=== PATIENT | female | born 1970 | race Caucasian/White ===

== ENCOUNTER 2017-08-24 21:09 | Emergency (ER) | payer OTHER ==
[2017-08-24 21:22] VITALS: BP 125/69; PULSE 98; RESP 16; TEMP 97; O2SAT 99
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
--- NOTE | 2017-08-25 11:09 | RAD ---
PROCEDURE: Cervical Spine Radiographs. HISTORY: Pain. COMPARISON: None. FINDINGS: BONES: Reversal of the anatomic lordosis with kyphosis DISC SPACES: Degenerative changes primarily affecting C5-6 and to lesser extent C6-7 consisting of disc space narrowing and non marginal anterior osteophyte formation. SOFT TISSUES: Normal. No prevertebral soft tissue swelling. OTHER FINDINGS: None. IMPRESSION: No acute findings related to/accounting for the clinical presentation. Additional benign and/or incidental findings described above. Concordant results with the preliminary interpretation rendered by the emergency department physician procedure.
== END 2017-08-24 23:02 | disposition home or self-care (01) ==
LOC: H.ER 21:09
DX: S39.012A Strain of muscle, fascia and tendon of lower back, initial encounter (principal); S16.1XXA Strain of muscle, fascia and tendon at neck level, initial encounter; V43.52XA Car driver injured in collision with other type car in traffic accident, initial encounter; Y92.410 Unspecified street and highway as the place of occurrence of the external cause

== ENCOUNTER 2018-12-02 12:08 | Emergency (ER) | payer OTHER ==
[2018-12-02 12:36] VITALS: BP 114/69; PULSE 87; RESP 18; TEMP 98.2; O2SAT 100
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
== END 2018-12-02 13:24 | disposition home or self-care (01) ==
LOC: H.ER 12:08
DX: S16.1XXA Strain of muscle, fascia and tendon at neck level, initial encounter (principal); V49.9XXA Car occupant (driver) (passenger) injured in unspecified traffic accident, initial encounter